=== PATIENT | male | born 1950 | race Caucasian/White ===

== ENCOUNTER 2016-12-28 10:05 | Emergency (ER) | payer BC ==
[2016-12-28 10:11] VITALS: BP 137/86; PULSE 107; TEMP 98.5; BMI 26.2
--- NOTE | 2016-12-28 10:13 | PDOC ---
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 He states that he fell, twisting his knee, about 3 weeks ago, had pain for a few days which was self-limited. Now he has posterior and lateral L knee pain. He is getting on a flight in 2 days and is concerned about prior history of DVTs. He is able to ambulate without difficulty. No numbness or weakness. Past History - Past Medical History Allergies/Adverse Reactions: Allergies Allergy/AdvReac Type Severity Reaction Status Date / Time No Known Allergies Allergy Verified 12/28/16 10:06 Home Medications: Ambulatory Orders Atorvastatin Ca [Lipitor] 40 mg PO HS 06/24/14 Duloxetine HCl [Cymbalta -] 90 mg PO DAILY 06/24/14 Mirtazapine [Remeron -] 30 mg PO HS 03/30/15 Warfarin Na [Coumadin -] 2 mg PO ASDIR 03/30/15 DVT: Yes (X2) Hypercholesterolemia: Yes Other medical history: blood clot - Suicide/Smoking/Psychosocial Hx Smoking History: Never smoked Have you smoked in the past 12 months: No Hx Alcohol Use: No Drug/Substance Use Hx: No Substance Use Type: None Review of Systems - Review of Systems Able to Perform ROS?: Yes Comments:: GENERAL/CONSTITUTIONAL: No fever or chills. No weakness. HEAD, EYES, EARS, NOSE AND THROAT: No change in vision. No ear pain or discharge. No sore throat. CARDIOVASCULAR: No chest pain or shortness of breath. RESPIRATORY: No cough, wheezing, or hemoptysis. MUSCULOSKELETAL: +L knee pain. No joint or muscle swelling. No neck or back pain. SKIN: No rash NEUROLOGIC: No headache, vertigo, loss of consciousness, or change in strength/ sensation. ENDOCRINE: No increased thirst. No abnormal weight change. HEMATOLOGIC/LYMPHATIC: No anemia, easy bleeding, or history of blood clots. ALLERGIC/IMMUNOLOGIC: No hives or skin allergy. *Physical Exam - Vital Signs Last Vital Signs Temp Pulse Resp BP Pulse Ox 98.5 F 107 H 18 137/86 99 12/28/16 10:05 12/28/16 10:05 12/28/16 10:05 12/28/16 10:05 12/28/16 10:05 - Physical Exam Comments: GENERAL: Awake, alert, and fully oriented, in no acute distress HEAD: No signs of trauma EYES: PERRLA, EOMI, sclera anicteric, conjunctiva clear ENT: Auricles normal inspection, hearing grossly normal, nares patent, oropharynx clear without exudates. Moist mucosa NECK: Normal ROM, supple, no lymphadenopathy, JVD, or masses LUNGS: Breath sounds equal, clear to auscultation bilaterally. No wheezes, and no crackles HEART: Regular rate and rhythm, normal S1 and S2, no murmurs, rubs or gallops EXTREMITIES: L knee with mild tenderness in the popliteal fossa. Anterior and posterior drawer signs negative. No laxity of MCL/LCL. Luz Elena's test negative. Remainder of extremities with normal range of motion, no edema. No clubbing or cyanosis. No cords, erythema, or tenderness NEUROLOGICAL: Cranial nerves II through XII grossly intact. Normal speech, normal gait SKIN: Warm, Dry, normal turgor, no rashes or lesions noted. 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 Patient states his last DVT was detected there, and he has been on coumadin since. INR today is 3.44. He has not had any ultrasounds in the interim. In light of the recent fall and the knee pain that is positional (worse with twisting motions of the knee), I would suspect a musculoskeletal injury is more likely as the cause of his pain. I provided him with a copy of ultrasound results, will refer to ortho for further evaluation to r/o a possible meniscal injury. Stable for DC home. *DC/Admit/Observation/Transfer Diagnosis at time of Disposition: DVT (deep venous thrombosis) Qualifiers: DVT location: lower extremity Affected thrombotic vein of extremity: popliteal Chronicity: chronic Laterality: left Qualified Code(s): I82.532 - Chronic embolism and thrombosis of left popliteal vein Knee pain, left Qualifiers: Chronicity: acute Qualified Code(s): M25.562 - Pain in left knee - Discharge Dispostion Disposition: HOME Condition at time of disposition: Stable Admit: No - Referrals Referrals: Uli Alexander MD [Staff Physician] - Jennyfer Macias [Primary Care Provider] - - Patient Instructions Printed Discharge Instructions: DI for Deep Vein Thrombosis, DI for Knee Pain
[2016-12-28 10:46] LABS: INR 3.44 (0.82-1.09); PROTHROMBIN TIME (PATIENT) 37.6 SEC (10.2-13.0)
== END 2016-12-28 12:11 | disposition home or self-care (01) ==
LOC: FER 10:05
DX: I82.532 Chronic embolism and thrombosis of left popliteal vein (principal); M25.562 Pain in left knee; E78.00 Pure hypercholesterolemia, unspecified; Z79.01 Long term (current) use of anticoagulants
CPT/HCPCS: 36415; 85610; 93971-TC; 99282-25